=== PATIENT | male | born 1985 | race Caucasian/White ===

== ENCOUNTER 2018-08-31 17:27 | Emergency (ER) | payer MEDICAID ==
[~2018-08-31] VITALS: Ht 182.9 cm; Wt 81.7 kg
[~2018-08-31 17:27] MED LIST: ALBU90OI INH; TRIAOI IH
== END 2018-08-31 18:38 | disposition home or self-care (01) ==
LOC: ER 17:27
DX: L23.7 Allergic contact dermatitis due to plants, except food (principal); Z88.8 Allergy status to other drugs, medicaments and biological substances; Z87.891 Personal history of nicotine dependence
CPT/HCPCS: 96372; 99283-25; J3301